=== PATIENT | male | born 1960 | race Caucasian/White ===

== ENCOUNTER → 2018-11-05 | Day surgery (SDC) | payer OTHER ==
[~2018-11-05] MED LIST: Dexamethasone IV* 4 MG/ML 1 ML (4 MG) ONE; Iohexol 180 (CONTRAST) 10 ML SDV IV ONE; Lidocaine 2% PF * 5 ML VIAL ONE; Morphine 4 MG/ML VIAL (1 ml) 4 MG/ML VIAL IV ONE; NS 0.9% 1000 ML** 1,000 ML IV ONE; Naloxone* 0.4 MG/ML 1 ML VIAL IV PRN; Ondansetron INJ* 2 MG/ML VIAL IV ONE; Ondansetron INJ* 2 MG/ML VIAL IV PRN; Ondansetron INJ* 2 MG/ML VIAL ONE; Ondansetron ODT TAB* 4 MG PO ONE; Propofol* 10 MG/ML 20 ML BTL ONE; cefTRIAXone(*) 1 GM ADVAN/BAG ONE; fentaNYL* 50 MCG/ML 2 ML VIAL (100 MCG VIAL) IV PRN; fentaNYL* 50 MCG/ML 2 ML VIAL (100 MCG VIAL) ONE; oxyCODONE/Acetamin 5/325 MG* TAB PO PRN
[2018-11-05 11:13] LABS: ABS Eosinophils 0.1 10^3/ul (0-0.6); ABS Lymphocytes 1.4 10^3/ul (1.0-4.8); ABS Monocytes 0.4 10^3/ul (0-0.8); ABS Neutrophils 4.4 10^3/ul (1.5-7.7); Eosinophil % 1.3 %; Hematocrit 44 % (42-52); Hemoglobin 15.1 g/dL (14.0-18.0); Lymphocyte % 21.5 %; Mean Corpuscular HGB Conc 34 g/dL (31-36); Mean Corpuscular Hemoglobin 32 pg (27-31); Mean Corpuscular Volume 94 fL (80-94); Mean Platelet Volume 8.3 fL (7.4-10.4); Platelet Count 261 10^3/uL (150-450); Red Blood Count 4.72 10^6 /uL (4.18-5.48); Red Cell Distribution Width 13 % (10-15); White Blood Count 6.3 10^3/uL (3.5-10.8)
[2018-11-05 11:30] LABS: Albumin 4.2 g/dL (3.2-5.2); Albumin/Globulin Ratio 1.8 (1-3); BUN/Creatinine Ratio 16.4 (8-20); C Reactive Protein 3.79 mg/L (<8.01); Calcium 9.7 mg/dL (8.6-10.3); EGFR African American 74.3 (>60); EGFR Non-African American 61.4 (>60); Globulin 2.4 g/dL (2-4); Potassium 3.8 mmol/L (3.5-5.0); Total Bilirubin 0.8 mg/dL (0.2-1.0); Total Protein 6.6 g/dL (6.4-8.9)
--- NOTE | 2018-11-05 12:04 | ED ---
Abdominal Pain/Male - HPI Summary HPI Summary: This patient is a 58 year old M presenting to [facility] accompanied by with a chief complaint of dull worsening localized RLQ abdominal pain since the morning of 11/04/18. At 0900, yesterday had nausea/dry heaving. 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 Pt had mild hematuria, on 11/04/18 but thought it was just from large amount of running. He usually gets mild hematuria at least once a year. However today he had gross hematuria, after running in the morning. Abdominal pain is radiating to the back. Pain does not radiate to testicles and scrotum. Pt has a PMHx of a OR, and stent placed. Per triage, the patient rates the pain 9/10 in severity. Pt has no FHx of kidney disease. According to pt may have a FHx of kidney stones. Patient reports some bloating, and nml BM (last time was this morning). Pt is on statin, and intentionally reduced it to 2-3 times a week Vital signs while in room: HR 53 bpm, BP 136/78 O2 sat 100%. Home Medications Medication Instructions Recorded Confirmed Type Cyanocobalamin TAB* [Vitamin B12 1,000 mcg PO WEEKLY 11/05/18 11/05/18 History TAB*] - History of Current Complaint Chief Complaint: EDAbdPain Stated Complaint: ABD PAIN/VOMITING PER PT Time Seen by Provider: 11/05/18 10:52 Hx Obtained From: Patient, Family/Bleach Mixer - Onset/Duration: Gradual Onset, Lasting Days, Still Present Timing: Constant Severity Initially: Moderate Severity Currently: Severe Pain Intensity: 9 Pain Scale Used: 0-10 Numeric Location: Discrete At: RLQ Radiates: Yes Radiates to: Back Character: Dull Aggravating Factor(s): Nothing Alleviating Factor(s): Nothing Associated Signs And Symptoms: Positive: Back Pain, Urinary Symptoms - gross hematuria, Nausea - Allergies/Home Medications Allergies/Adverse Reactions: Allergies Allergy/AdvReac Type Severity Reaction Status Date / Time Penicillins Allergy Mild Rash Verified 11/17/18 07:54 Home Medications: Home Medications Cyanocobalamin TAB* [Vitamin B12 TAB*] 1,000 mcg PO WEEKLY 11/05/18 [History Confirmed 11/05/18] PMH/Surg Hx/FS Hx/Imm Hx Previously Healthy: No Endocrine/Hematology History: Denies: Hx Diabetes, Hx Systemic Lupus Erythematosus Cardiovascular History: Reports: Hx Coronary Artery Disease, Hx Myocardial Infarction, Other Cardiovascular Problems/Disorders - cardiac stent, cardiomyopathy Denies: Hx Congestive Heart Failure, Hx Hypertension History: Denies: Hx Dialysis, Hx Renal Disease Musculoskeletal History: Denies: Hx Rheumatoid Arthritis - Surgical History Surgery Procedure, Year, and Place: cardiac stent. cardiac cath 2018, stent patent Infectious Disease History: No Infectious Disease History: Denies: Traveled Outside the [place] in Last 30 Days - Family History Known Family History: Positive: Other - FHx of kidney stones, no FHx of kidney disease - Social History Lives: With Family Alcohol Use: Occasionally Substance Use Type: Reports: None Hx Tobacco Use: No Smoking Status (MU): Never Smoked Tobacco Review of Systems Constitutional: Negative Cardiovascular: Negative Respiratory: Negative Positive: Abdominal Pain, Nausea Positive: hematuria Positive: Other - pos - back pain Skin: Negative Neurological: Negative Psychological: Normal All Other Systems Reviewed And Are Negative: Yes Physical Exam - Summary Physical Exam Summary: Pt in severe pain, crying out, appears ill, well-nourished, appears athletically fit Skin: Warm, color reflects adequate perfusion, dry Head: Normal Head/Face inspection, atraumatic Eyes: Conjunctiva clear ENT: Normal inspection Neck: Supple, no nodes, no JVD Respiratory: Lungs clear, normal breath sounds, no respiratory distress Cardio: RRR, No murmur, pulses normal, brisk capillary refill Abdomen: Soft, tenderness inferior to right umbilicus and RLQ, no bruits, no masses, nondistended no rebound, no guarding, no masses, non-distended Bowel sounds: Present Musculoskeletal: Strength Intact/ROM intact, no calf tenderness, no edema. Psychological: Normal, in pain Neuro: Alert, muscle tone normal, no focal deficit Triage Information Reviewed: Yes Vital Signs On Initial Exam: Initial Vitals Temp Pulse Resp BP Pulse Ox 97.2 F 60 16 154/86 99 11/05/18 09:53 11/05/18 09:53 11/05/18 09:53 11/05/18 09:53 11/05/18 09:53 Vital Signs Reviewed: Yes Diagnostics - Vital Signs Vital Signs Temp Pulse Resp BP Pulse Ox 11/05/18 11:45 26 11/05/18 11:44 42 14 136/78 100 11/05/18 11:32 42 140/81 100 11/05/18 11:14 97.3 F 43 130/79 100 11/05/18 11:13 49 11/05/18 10:33 96.9 F 48 18 148/81 96 11/05/18 09:53 97.2 F 60 16 154/86 99 - Laboratory Lab Results: Lab Results 11/05/18 11/05/18 11/05/18 Range/Units 11:04 11:04 11:04 WBC 6.3 (3.5-10.8) 10^3/uL RBC 4.72 (4.18-5.48) 10^6 /uL Hgb 15.1 (14.0-18.0) g/dL Hct 44 (42-52) % MCV 94 (80-94) fL MCH 32 H (27-31) pg MCHC 34 (31-36) g/dL RDW 13 (10-15) % Plt Count 261 (150-450) 10^3/uL MPV 8.3 (7.4-10.4) fL Neut % (Auto) 70.7 % Lymph % (Auto) 21.5 % Polk % (Auto) 5.7 % Eos % (Auto) 1.3 % Baso % (Auto) 0.8 % Absolute Neuts (auto) 4.4 (1.5-7.7) 10^3/ul Absolute Lymphs (auto) 1.4 (1.0-4.8) 10^3/ul Absolute Monos (auto) 0.4 (0-0.8) 10^3/ul Absolute Eos (auto) 0.1 (0-0.6) 10^3/ul Absolute Basos (auto) 0.0 (0-0.2) 10^3/ul Absolute Nucleated RBC 0.0 10^3/ul Nucleated RBC % 0.0 Sodium 141 (135-145) mmol/L Potassium 3.8 (3.5-5.0) mmol/L Chloride 108 (101-111) mmol/L Carbon Dioxide 28 (22-32) mmol/L Anion Gap 5 (2-11) mmol/L BUN 20 (6-24) mg/dL Creatinine 1.22 H (0.67-1.17) mg/dL Est GFR ( Amer) 74.3 (>60) Est GFR (Non-Af Amer) 61.4 (>60) BUN/Creatinine Ratio 16.4 (8-20) Glucose 137 H (70-100) mg/dL Lactic Acid 1.5 (0.5-2.0) mmol/L Calcium 9.7 (8.6-10.3) mg/dL Total Bilirubin 0.80 (0.2-1.0) mg/dL AST 31 (13-39) U/L ALT 20 (7-52) U/L Alkaline Phosphatase 68 (34-104) U/L C-Reactive Protein 3.79 (<8.01) mg/L Total Protein 6.6 (6.4-8.9) g/dL Albumin 4.2 (3.2-5.2) g/dL Globulin 2.4 (2-4) g/dL Albumin/Globulin Ratio 1.8 (1-3) Result Diagrams: 11/05/18 11:04 11/05/18 11:04 Lab Statement: Any lab studies that have been ordered have been reviewed, and results considered in the medical decision making process. - CT Abdomen/Pelvis CT CT Interpretation Completed By: Radiologist Summary of CT Findings: Abdomen/Pelvis CT reveals, per radiologist, IMPRESSION: There is a calculus in the right proximal ureter at approximately L3-L4 level measuring 1.1 cm in greatest length. Moderate degree of right hydronephrosis is noted. Additional 0.5 cm calculi is noted overlying the lower pole of the right kidney. Normal appendix. ED physician has reviewed this radiology report. - EKG 1152 Cardiac Rate: Bradycardia EKG Rhythm: Sinus Bradycardia ST Segment: Non-Specific Ectopy: None EKG Comparison: Other - c/w 04/19/2011 Summary of EKG Findings: An EKG at 1152 reveals sinus bradycardia 54 bpm, nml AV /IV CT, nml QTc, no acute changes compared with 04/19/11, OR has resolved in anterior leads, now with q waves in V1-V3 Re-Evaluation - Re-Evaluation First Eval Re-Evaluation Time: 12:52 Change: Improved Comment: Discussed plan of care for OR due to large calculus and hydronephrosis. Abdominal Pain Male Course/Dx - Course Course Of Treatment: 58 yo male runner presents with severe RLQ and gross hematuria after a 3 mile run this am. Pt with hx OR 2012 and LAD stent. Physical exam findings are nml except severe pain and tenderness inferior to right umbilicus and RLQ. Blood work obtained. Creatinine is 1.22, Glucose is 137. Urine protein is 2+, urine ketones are trace, Urine blood is 3+, Ur Squamous Epith Cells are present. An EKG at 1152 reveals sinus bradycardia 54 bpm, nml TESSIE CT, nml QTc, no acute changes, compared with 04/19/11, OR has resolved in anterior leads. and now with q waves in V1-V3. Abdomen/Pelvis CT reveals, per radiologist, IMPRESSION: There is a calculus in the right proximal ureter at approximately L3-L4 level measuring 1.1 cm in greatest length. Moderate degree of right hydronephrosis is noted. Additional 0.5 cm calculi is noted overlying the lower pole of the right kidney. Normal appendix. Pt medications reviewed this visit. Nurses notes reviewed. Allergies noted. Checked I-STOP. In the ED course the patient was given morphine, Zofran, and fluids. Discussed case with Dr. Thomas, who will see pt in the OR at 0500, and wants a consult for medical clearance for anesthesia. 12:[address] Santo, who will come see pt. Patient will be admitted. The patient is agreeable with this plan. - Diagnoses Differential Diagnosis/HQI/PQRI: Appendicitis, Gall Bladder Disease, Renal Colic , Ureteral Stone, Urinary Tract Infection Provider Diagnoses: Right ureteral stone, Hydronephrosis of right kidney - Provider Notifications Discussed Care Of Patient With: Jarek Thomas Time Discussed With Above Provider: 12:43 Instructed by Provider To: Other - Discussed case with Dr. Thomas, who will take pt to the OR, after a medical consult for medical clearance. 12:[address] Santo, who will come see pt. Discharge ED - Sign-Out/Discharge Documenting (check all that apply): Patient Departure - Admit All imaging exams completed and their final reports reviewed: Yes Patient Received Moderate/Deep Sedation with Procedure: No - Discharge Plan Condition: Stable Disposition: ADMITTED TO [facility] - Billing Disposition and Condition Condition: STABLE Disposition: Admitted to [facility] - Attestation Statements Document Initiated by Scribe: Yes Documenting Scribe: Morena Pederson Provider For Whom Papiibtyra is Documenting (Include Credential): Dr. Ramona Hayden MD Scribe Attestation: Morena Rodriguez scribed for Dr. Ramona Hayden MD on 12/10/18 at 2218. Scribe Documentation Reviewed: Yes Provider Attestation: The documentation as recorded by the papiibe, Morena Pederson accurately reflects the service I personally performed and the decisions made by me, Dr. Ramona Hayden MD Status of Scribe Document: Viewed
[2018-11-05 12:25] LABS: Myoglobin 31.9 ng/mL (17.4-105.7)
[2018-11-05 12:26] LABS: CKMB ng/mL 5.2 ng/mL (0.6-6.3)
[2018-11-05 14:29] LABS: Urine Appearance Cloudy; Urine Bacteria Absent (Absent); Urine Bilirubin Negative (Negative); Urine Blood 3+ (Negative); Urine Color Amber; Urine Glucose Negative (Negative); Urine Ketones Trace (Negative); Urine Nitrite Negative (Negative); Urine Protein 2+(100 mg/dL) (Negative); Urine Red Blood Cell 3+(>10/hpf) (Absent); Urine Specific Gravity 1.018 (1.010-1.030); Urine Squamous Epithelial Cell Present (Absent); Urine Urobilinogen Negative (Negative); Urine White Blood Cell Absent (Absent)
--- NOTE | 2018-11-05 15:38 | CONSULT ---
Subjective Date of Service: 11/05/18 - CC: RLQ pain, pre op for kidney stones. 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 Pt states for several days he has had pain RLQ, the worst pain he has ever had today. ED work up showed renal calculi, plan is OR now. Asked to pre op evaluate. The patient had a decline in exercise ability in past w/90% LAD. Stent occluded one week later and with this he had chest tightness. Currently the patient is aggressively exercising. He ran 3 miles today. He has been running long distant races/runs 2018. No hx of a decline in exercise capacity. No recent recurrence of CP. Family History: Unchanged from Admission - + CAD, father, uncle, early. Social History: Unchanged from Admission - Runs / marathon, no cigarettes, no substance abuse. 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 Past Medical History: Unchanged from Admission - CAD: 90% occlusion mid LAD to stent and 50% prox LAD. 1 week post stent, occlusion and AWMI. Cath [facility] 2018: LAD stent patent, LAD w/o other disease, LM clean, Cx no sig disease, RCA dominant, free of disease. EF 40-45%. Hx phlebitis and superficial vein thrombosis 20's and 32 yo. Dyslipidemia. Ischemic CM. Medications Active Medications: Cyanocobalamin TAB* [Vitamin B12 TAB*] 1,000 mcg PO WEEKLY 11/05/18 [History Confirmed 11/05/18] Crestor 5 mg q 3 days +/- Plavix non responder. Home Medications: Cyanocobalamin TAB* [Vitamin B12 TAB*] 1,000 mcg PO WEEKLY 11/05/18 [History Confirmed 11/05/18] Review of Systems - Measurements Intake and Output: Intake and Output Last 24 Hours 11/03/18 11/04/18 11/05/18 11/06/18 04:59 04:59 04:59 04:59 Intake Total 1000 Balance 1000 Weight 200 lb Intake: IV Fluids 1000 - Review of Systems General Comments: No CP, orthopnea, PND. Review of Systems Statement: All other review of systems negative, unless stated above. Objective Vital Signs: Temp Pulse Resp BP Pulse Ox 98.4 F 64 16 122/75 96 11/05/18 15:23 11/05/18 15:23 11/05/18 15:23 11/05/18 15:23 11/05/18 15:23 Oxygen Devices in Use Now: None Appearance: fit, lean, NAD in wheel chair. Eyes: No Scleral Icterus, PERRLA Ears/Nose/Mouth/Throat: Mucous Membranes Moist Neck: NL Appearance and Movements; NL JVP Respiratory: Symmetrical Chest Expansion and Respiratory Effort, Clear to Auscultation Cardiovascular: NL Sounds; No Murmurs; No JVD, RRR Abdominal: - - Non distended, normal bowel sounds. Extremities: No Edema, No Clubbing, Cyanosis Skin: No Rash or Ulcers Neurological: Alert and Oriented x 3 Lines/Tubes/Other Access: Clean, Dry and Intact Peripheral IV Laboratory Results: 11/05/18 11:04 11/05/18 11:04 Total Bilirubin 0.80 mg/dL (0.2-1.0) 11/05/18 11:04 AST 31 U/L (13-39) 11/05/18 11:04 ALT 20 U/L (7-52) 11/05/18 11:04 Alkaline Phosphatase 68 U/L (34-104) 11/05/18 11:04 CK-MB (CK-2) 5.2 ng/mL (0.6-6.3) 11/05/18 11:04 Total Protein 6.6 g/dL (6.4-8.9) 11/05/18 11:04 Albumin 4.2 g/dL (3.2-5.2) 11/05/18 11:04 Globulin 2.4 g/dL (2-4) 11/05/18 11:04 Albumin/Globulin Ratio 1.8 (1-3) 11/05/18 11:04 Diagnostic Imaging: Patient Name: LASHAWN HICKS Medical Record#: [id number] Ordering Physician: Ramona Hayden MD Acct.#: [id number] : 1960 Age: 58 Sex: M Location: EMERGENCY DEPARTMENT Exam Date: 11/05/18 114 ADM Status: REG ER Order Information: CT ABD/PEL W/O Accession Number: [id number] CPT: 43834 Indication: Right lower quadrant pain, hematuria. CT of the abdomen and pelvis was performed without oral or IV contrast coronal and sagittal reconstructed images were obtained. Lung bases demonstrate no pleural fluid, nodules or masses. Heart demonstrates no pericardial effusion. Liver is normal in size. No focal lesions or intrahepatic ductal dilatation is noted. Common duct is not dilated. The gallbladder demonstrates no calcified gallstones , pericholecystic fluid or wall thickening noted. Spleen is normal in size. No adrenal masses are noted. The pancreas demonstrates no mass or pancreatic duct dilatation. There is marked right hydronephrosis noted. There is a calculus in the right proximal ureter measuring approximately 1.1 cm. Additional nonobstructing calculi lower pole right kidney measuring 5 mm. The left kidney shows no hydronephrosis. The distal ureters are unremarkable. Aorta and inferior vena cava are unremarkable. Small bowel demonstrates no abnormal dilatation. The appendix is visualized and is unremarkable. Stool is present throughout the colon. Degenerative disc disease is noted L2-L3. No compression fracture is noted. IMPRESSION: There is a calculus in the right proximal ureter at approximately L3 -L4 level measuring 1.1 cm in greatest length. Moderate degree of right hydronephrosis is noted. Additional 0.5 cm calculi is noted overlying the lower pole of the right kidney. Normal appendix. <Electronically signed by Bekah Weiss MD in [place]> 11/05/18 1225 Dictated By: Bekah Weiss MD Dictated Date/Time: 11/05/18 1222 Transcribed Date/Time: 11/05/18 1222 Copy to: CC:Ramona Hayden MD; Lashawn Ellis MD Imaging - [facility] Imaging - [place] [facility] - [facility] This report is only to be considered final once signed by the Provider(s) as displayed in the "<Electronically Signed by >" field (s). Absence of a signature indicates the report is in a draft status and still needs to be finalized. In the event this document was created by someone other than the signing Provider, the individual initiating the document will be listed in the "Entered by:" or "Dictated by:" griggs. 1 of 2 EKG Data: ECG: NSR, anterior Q's c/w old AWMI. No acute ST changes. Assessment/Plan 58 yo with renal stones, renal colic who needs to go to OR. The patient has a hx distant AWMI from occluded stent to LAD (2011) Cath 2018: clean vessels and stent recanalized. Moderate CM. As the patient is very active, cath as above and stable ECG, may proceed to surgery w/o additional cardiac evaluation. The patient is at risk for CHF with rapid volume infusion due to his CM. I discussed the patient with his regular environmental science program director Dr Isabel and reviewed [facility] records.
--- NOTE | 2018-11-05 16:58 | CONS ---
CC: Dr. Ellis; Dr. Ramona Hayden; Dr. Thomas CONSULTATION REPORT: DATE OF CONSULT: 11/05/18 TIME OF EVALUATION: 3 p.m. PRIMARY CARE PROVIDER: Dr. Ellis. REQUESTING PHYSICIAN: Dr. Ramona Hayden. CONSULTING UROLOGIST: Dr. Thomas. REASON FOR CONSULT: Medical optimization prior to cystoscopy. HISTORY OF PRESENT ILLNESS: Mr. Akhtar is a 58-year-old male with a past medical history of coronary artery disease, status post stent, complicated by stent thrombosis resulting in acute anterior DC and with PCI resulting in ischemic cardiomyopathy in 2011. The patient states that he has had no symptoms of chest pain or shortness of breath, and he actually ran a half marathon over the weekend. He says that after his DC, he became a vegan and he continues to run and is training for a ultra marathon. The patient states that he stopped taking his cardiac m edications under Dr. Garcia's supervision. Records were obtained from Dr. Garcia's office and his last progress note was in April 2018. At that point, Dr. Garcia stated that the patient wa s asymptomatic from an ischemic standpoint. Cath done in October 2017 showed no obstructive lesions. His recommendation was for the patient to continue aspirin 81 mg daily, but the patient is not takin g, and also to take a statin which the patient is reluctant to take. The patient states that he take s statin 3 times a week. He is also not on beta-riaz due to prior symptoms of fatigue and sinus b radycardia. The patient has chronic systolic CHF. His ejection fraction was 38% on an echo done in September 2017. Dr. Garcia at that time felt that medications at that point, the risks would outweigh benefits since he already had some issues with orthostatic symptoms, so he is not on an LOUIE inhibitor . At this time, the patient states that he developed severe lower abdominal pain with hematuria, dry he aving, and nausea. He states that years ago he had hematuria and was worked up with Dr. William arteaga reported normal cystoscopy. He states that since then he has had 1 or 2 episodes of hematuria a year that he associates with exertion. The episodes usually happen a day after a vigorous exertion a nd will resolve within hours, but they were not associated with abdominal pain. At the time of my interview, the patient denies chest pain, palpitation, or shortness of breath and s ays that he has excellent exercise capacity. PAST MEDICAL HISTORY: 1. Coronary artery disease, status post stent to LAD in 2011 complicated by thrombosis of the LAD st ent a week later, status post PCI as described above. 2. Chronic systolic CHF with ejection fraction of 38% in 2018. 3. Hematuria. FAMILY HISTORY: He states that his father had coronary artery disease and had a bypass in his 70s. SOCIAL HISTORY: The patient denies tobacco or drug use. He says that he occasionally has some alcoh ol. He exercises regularly. As described above, he just ran a half marathon over the weekend and is training for other events. REVIEW OF SYSTEMS: A 14-point review of systems was performed and all the pertinent negatives and po sitive findings are in the HPI. PHYSICAL EXAM: Vital Signs: Temperature 98.4, heart rate is 64, respiratory rate is 16, oxygen satu ration 96% on room air, blood pressure is 122/75. 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 CVS: S1, S2. Regular rate and rhyth m. Chest: Breath sounds present bilaterally with no added sounds. Extremities: No edema. Neuro: He is alert and oriented x3. Able to move all 4 extremities. DIAGNOSTIC STUDIES/LAB DATA: The patient had a CBC with no significant abnormalities. His chemistry showed a creatinine of 1.2 and a random glucose of 137. Urinalysis showed trace ketones, 3+ blood, 3+ rbc's. CT of the abdomen and pelvis showed the calculus in the right proximal ureter measuring 1.1 cm in the greatest length with a moderate degree of right hydronephrosis. EKG done on 11/05/18 at 11:52 a.m. shows sinus bradycardia at 54 beats per minute with an old anterio r infarct. ASSESSMENT AND PLAN: Mr. Akhtar is a 58-year-old male with a past medical history of coronary artery disease, status post stent, complicated by stent thrombosis, status post PCI, who [facility] [place] with complaints of abdominal pain, found to have nephrolithiasis with hydronephrosis. The patient's cardiac history is more complicated as previously stated. I am specially concerned wit h the fact that he has been off all his coronary artery disease medications. At this point, he is no t on aspirin or any other antiplatelet agents. He is not on a beta-riaz. He is not on an LOUIE inh ibitor and is only taking a statin 2 to 3 times a week. He is asymptomatic from a cardiac point of v iew. He seems to have very good exercise capacity running a half marathon with no symptoms. Records from [facility] revealed an echocardiogram with ejection fraction of 38% in October 2017 and also a card iac cath with no reported occlusion, but due to the complexity of his disease, I requested a consulta tion with Cardiology (Dr. Villegas) to make sure this patient is optimized from a cardiological point of view. He has no other active issues at this time, so as long as Cardiology thinks he is medically optimized for surgery, I would not request any further workup. TIME SPENT: Approximately 50 minutes was spent with the patient interview, medical record review, ph ysical examination to complete this consultation, more than half of this time was spent [id number] with the patient in coordination of care. [id number]/[facility] #: [id number]
--- NOTE | 2018-11-05 18:47 | HP ---
CC: Dr. Ellis * HISTORY AND PHYSICAL: DATE OF ADMISSION AND SURGERY: 11/05/18 HISTORY OF PRESENT ILLNESS: Mr. Akhtar is a 58-year-old white male who is admitted with a proximal right ureteral calculus for cystoscopy and insertion of right ureteral stent. Please refer to the detailed history and physical included in the consultation note of Dr. Linus Stout dated 11/05/18. I had seen Mr. Akhtar in my office in 2012 because of recurrent episodes of post exercise gross hematuria. At that time, he was fully worked up and no renal or bladder abnormalities were noted. The hematuria was assumed to be benign post- exercise type. The patient has done very well having only an occasional episode of postexercise hematuria. He was doing well until yesterday when he started having acute right-sided flank pain. This was associated with gross hematuria, but no fever or chills. This morning, the pain became very severe and he presented to the emergency room. His vital signs were normal. He did not have any fever or chills. Noncontrast CT of the abdomen and pelvis showed an 1.2 cm calculus in the proximal right ureter just distal to the ureteropelvic junction associated with mild hydronephrosis. There was also a 3 mm faint calculus in the lower pole calyx of the right kidney. No other abnormalities were noted. The patient had normal CBC and differential. His creatinine was 1.2. Urinalysis showed blood, but no infection. PAST MEDICAL HISTORY AND SYSTEM REVIEW: His cardiac history is detailed in Dr. Stout's note. He had stopped all his cardiac medications. He takes statin 3 times per week. He is off all anticoagulation. FAMILY HISTORY: Negative. SOCIAL HISTORY: He is a nonsmoker. He has no alcohol intake and he is a vegan. He has excellent exercise tolerance and he is practicing to run a long distance race in 10 days. PHYSICAL EXAMINATION GENERAL: He is a pleasant, healthy and fit looking white male who is in no pain. VITAL SIGNS: His vital signs are normal. ABDOMEN: Exam of the abdomen is normal. He has mild to moderate right CVA tenderness. IMPRESSION: Recent episode of right renal colic secondary to a rather large calculus at the right ureteropelvic junction with mild right hydronephrosis. Considering the size of the stone and its location, it is unlikely to pass spontaneously. PLAN: The plan is to take him to the operating room for a cystoscopy and insertion of right ureteral stent in preparation for definitive treatment of the stone, probably shock-wave lithotripsy. If the calculus had dropped into the lower half of the ureter between the CT scan and the planned procedure, then a right ureteroscopy laser lithotripsy will be performed. I discussed the above plans in detail with the patient. All his questions were answered. Prostate exam will be done in the OR under anesthesia. [id number]/CPS #: [id number] LLOYD
[2018-11-05 19:15] VITALS: BP 137/86
--- NOTE | 2018-11-05 21:43 | OP ---
CC: Dr. Ellis * DATE OF OPERATION: 11/05/18 - [facility] DATE OF : 64 SURGEON: Jarek Thomas MD ANESTHESIOLOGIST: Dr. Mickey Wilson. ANESTHESIA: General. PRE-OP DIAGNOSES: 1. Right renal colic. 2. 1.2 cm calculus at right ureteropelvic junction. POST-OP DIAGNOSES: 1. Right renal colic. 2. A 1.2 cm calculus at right ureteropelvic junction. OPERATIVE PROCEDURE: 1. Cystoscopy. 2. Right retrograde pyelography. 3. Insertion of right ureteral stent (6 [place]awk). INDICATIONS FOR PROCEDURE: Mr. 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 At that time, his workup was negative and no abnormalities were noted. He presented to the emergency room today with symptoms of right renal colic associated with gross hematuria. Noncontrast CT of the abdomen and pelvis showed a 1.2-cm calculus at the right ureteropelvic junction. Because of the above history and finding, the patient is taken to the operating room on an urgent basis for right ureteral stent insertion in preparation for definitive treatment of the stone. PATHOLOGY AT CYSTOSCOPY: The penile and bulbar urethrae looked normal. The prostatic urethra was short and open. Examination of the bladder showed normal bladder mucosa. There were no suspicious bladder lesions seen. No areas of carcinoma in situ. There were very small fragments of calculi that had the gross appearance of calcium oxalate stone. At fluoroscopy, a radiopaque calculus measuring about 1 cm in size was noted at the level of the right ureteropelvic junction. There was some resistance to the introduction of the guidewire beyond the stone. There was slightly bloody efflux from the right kidney following the placement of the guidewire. Rectal examination at the end of the procedure showed a non-enlarged and non- suspicious prostate. DESCRIPTION OF PROCEDURE: After successful general anesthesia, the patient was placed in the lithotomy position and was prepped and draped for a cystoscopy. Cystoscopy was performed. The bladder was carefully inspected and the above findings were noted, namely, there were no bladder lesions to account for the gross hematuria. A flexible-tip guidewire was then introduced inside the right orifice and passed under fluoroscopy. There was partial coiling of the guidewire at the level of the stone, but after some manipulation, the guidewire was successfully introduced inside the area of the collecting system. An open-ended catheter was fed on top of the guidewire and positioned in the area of the renal pelvis. Retrograde pyelography was then performed demonstrating mild hydronephrosis. A size 6-Mohawk stent was then placed with the proximal end coiling in renal pelvis and the distal end coiling inside the bladder. There was good drainage of contrast from the kidney and no extravasation. The calculus could not be seen any more at the level of the ureteropelvic junction indicating it migrated up into the collecting system. The bladder was then emptied and the cystoscope was removed. Rectal examination was performed. The patient tolerated the procedure well and left the operating room in good condition. The plan is to obtain a KUB before the patient's discharge. The patient will likely require shockwave lithotripsy followed by stent removal at a later date. [id number]/CPS #: [id number] MTDD
== END | disposition home or self-care (01) ==
LOC: ED 09:52 → OR 15:02
PROVIDERS: ATTEND Urology
DX: N13.2 Hydronephrosis with renal and ureteral calculous obstruction (principal); R31.0 Gross hematuria; R10.31 Right lower quadrant pain; R11.0 Nausea; I25.2 Old myocardial infarction; I50.22 Chronic systolic (congestive) heart failure; E78.5 Hyperlipidemia, unspecified; I25.5 Ischemic cardiomyopathy; I25.10 Atherosclerotic heart disease of native coronary artery without angina pectoris; Z95.5 Presence of coronary angioplasty implant and graft; Z79.01 Long term (current) use of anticoagulants
CPT/HCPCS: 36415; 74018; 74176; 74420; 80053; 81003; 81015; 82550; 82553; 83605; 83874; 85025; 86140; 93005; 99284; A9270-GY; C1876; J0696; J1100; J2270; J2405; J2704; J3010

== ENCOUNTER → 2018-11-17 05:55 | Day surgery (SDC) | payer OTHER ==
--- NOTE | 2018-11-13 17:40 | HP ---
CC: Dr. Montrell Cotto HISTORY AND PHYSICAL: DATE OF PLANNED ADMISSION/SURGERY: 11/17/18 HISTORY OF PRESENT ILLNESS: Mr. Akhtar is a 58-year-old white male who is admitted with a right proxi mal ureteral calculus for shockwave lithotripsy and possible removal of right ureteral stent. Please refer to the detailed history and physical for this patient's admission dated 11/05/18. This is an interval history note. Mr. Akhtar is a 58-year-old white male who presented to the emergency room on 11/05/18 with symptoms o f right renal colic. Noncontrast CT of the abdomen and pelvis showed the 1.2 cm calculus at the righ t ureteropelvic junction. Because of history of coronary artery disease and history of ischemic cardiomyopathy, the patient had a consultation with the hospitalist service. He was cleared to undergo procedure under anesthesia. On that same day, the patient underwent cystoscopy and insertion of right ureteral stent. It was wel l tolerated. The patient was then seen in my office and had a followup KUB which showed the right ureteral stent i n good position and 1.2 cm calculus in the proximal right ureter adjacent to the stent just distal to the ureteropelvic junction. No other abnormal calcifications were noted. His urine analysis in the office was positive for blood, negative for infection. The patient now is admitted for shockwave lithotripsy of the right renal calculus and possible cystos copy and removal of the right ureteral stent. There has not been any changes in his medical condition and no new medications. The patient is on no aspirin or other anticoagulation. The patient reports being allergic to PENICILLIN with skin rash. He had received Rocephin including on his recent procedure and had no reaction to that. The patient's cardiac status is stable. He is in excellent shape. 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 He is on no chronic medications. H is physical exam is unchanged. I had a long discussion with Mr. Akhtar regarding the planned procedure. Some of the potential compli cations including hematuria, incomplete fragmentation of the stone, possible renal colic after the st ent removal if the stone fragments get stuck in the ureter. All his questions were answered. [id number]/[facility] #: [id number]
[~2018-11-17 05:55] MED LIST changes: +Buffered Lidocaine 1% SYRIN* 1 ML/SYRINGE INTRADERM ONE; -Dexamethasone IV* 4 MG/ML 1 ML (4 MG) ONE; -Iohexol 180 (CONTRAST) 10 ML SDV IV ONE; +Lactated Ringers 1000 ML Bag* 1,000 ML IV SCH; -Morphine 4 MG/ML VIAL (1 ml) 4 MG/ML VIAL IV ONE; -NS 0.9% 1000 ML** 1,000 ML IV ONE; -Ondansetron INJ* 2 MG/ML VIAL IV ONE; -Ondansetron INJ* 2 MG/ML VIAL ONE; -Ondansetron ODT TAB* 4 MG PO ONE; +Sodium Citrate/Citric Acid* 15 ML UDC ONE; +Sodium Citrate/Citric Acid* 15 ML UDC PO ONE; -cefTRIAXone(*) 1 GM ADVAN/BAG ONE; +cefTRIAXone(*) 2 GM ADDV.VIAL IVPB ONE; -fentaNYL* 50 MCG/ML 2 ML VIAL (100 MCG VIAL) ONE; -oxyCODONE/Acetamin 5/325 MG* TAB PO PRN
[2018-11-17 11:53] VITALS: BP 135/91
--- NOTE | 2018-11-17 12:00 | OP ---
CC: Dr. Horacio Ellis * DATE OF OPERATION: 11/17/18 - [facility] DATE OF : 64 SURGEON: Jarek Thomas MD ANESTHESIOLOGIST: Dr. Jann Jensen. ANESTHESIA: General. PRE-OP DIAGNOSES: 1. Proximal right ureteral calculus (1.2 cm). 2. Status post placement of right ureteral stent. POST-OP DIAGNOSES: 1. Proximal right ureteral calculus (1.2 cm). 2. Status post placement of right ureteral stent. OPERATIVE PROCEDURE: Shockwave lithotripsy of right ureteral calculus (1.2 cm). INDICATION FOR PROCEDURE: Mr. Akhtar is a 58-year-old white male who presented about two weeks ago with symptoms of right renal colic and was noted on CT to have a 1.2 cm calculus at the right ureteropelvic junction. He had urgent placement of right ureteral stent. Postoperative KUB showed the stone to be in the same location. The patient is scheduled for shockwave lithotripsy of the right ureteral calculus with possible stent removal. PATHOLOGY: Preoperative KUB showed the stone to have migrated about 2 cm distal to the ureteropelvic junction. It was still in the proximal ureter adjacent to the stent. The right ureteral stent was in good position. No other abnormal calcifications were noted. DESCRIPTION OF PROCEDURE: After successful general anesthesia, the patient was placed in the supine position on the shockwave lithotripsy table. The right ureteral calculus was visualized in both the PA and the oblique x-ray views and the position of the generator and of the patient were adjusted to have the stone in the focus of the shock waves. A total of 2,400 shocks were then delivered at a rate of 60 shocks per minute. The proper positioning and fragmentation of the stone were monitored periodically. At the completion of the treatment, there was very good fragmentation of the stone. Because of the number of shockwaves that were delivered and the expected edema of the ureteral wall, it was decided not to remove the stent at this time. The plan is to see the patient in the office next week with a KUB. If it confirms the fragmentation of the stone, the stent will be removed in the office under local anesthesia. [id number]/CPS #: [id number] MTDD
== END | disposition home or self-care (01) ==
LOC: OR 05:55
PROVIDERS: ATTEND Urology
DX: N20.0 Calculus of kidney (principal); I25.10 Atherosclerotic heart disease of native coronary artery without angina pectoris; I25.5 Ischemic cardiomyopathy; Z95.5 Presence of coronary angioplasty implant and graft; Z88.0 Allergy status to penicillin
CPT/HCPCS: 74018; A9270-GY; J0696; J2704